=== PATIENT | female | born 1985 | race Hispanic/Latino ===

== ENCOUNTER 2022-07-22 13:59 | Emergency (ER) | payer SELFPAY ==
[2022-07-22] MEDS ORDERED: Ketorolac Tromethamine 30 MG/ML VIAL ONE (15:15)
== END 2022-07-22 15:40 | disposition home or self-care (01) ==
LOC: CSHERS 13:59
DX: B02.23 Postherpetic polyneuropathy (principal); E11.9 Type 2 diabetes mellitus without complications
CPT/HCPCS: 96372; 99283; J1885